=== PATIENT | female | born 1985 | race Caucasian/White ===

== ENCOUNTER 2017-11-15 15:47 | Emergency (ER) | payer MEDICARE, OTHER ==
--- NOTE | 2017-11-15 16:15 | ED Physician Documentation ---
Hand Injury - HISTORIAN Historian: patient - HPI Stated Complaint: wrist pain Chief Complaint: Upper Extremity Injury Onset: just prior to arrival Where: home Severity: mild Duration: persistent since Context: fall Location of Injury: R hand, R wrist Modifying Factors: pain on movement Further Comments: yes (per staff member she fell around 230 pm and her hand and wrist have had pain since. They have not given her any OTC meds) - ROS CONST: no problems - PAST HX Past History: other (MR, OCD, GERD , Schizophrenia, Bipolar ) Immunizations: UTD Allergies/Adverse Reactions: Allergies Allergy/AdvReac Type Severity Reaction Status Date / Time lorazepam [From Ativan] Allergy Verified 11/15/17 15:58 paroxetine [From Paxil] Allergy Verified 11/15/17 15:58 Home Medications: Ambulatory Orders Medication Instructions Recorded Ammonium Lactate [Yuni-Hydrolac] 1 applic TOP PRN PRN 11/15/17 Divalproex Sodium [Depakote] 4 tab PO HS 11/15/17 Esomeprazole Magnesium [Nexium] 1 cap PO DAILY 11/15/17 Fluvoxamine Maleate [Luvox] 1 tab PO DAILY 11/15/17 Fluvoxamine Maleate [Luvox] 1 tab PO HS 11/15/17 Gabapentin 1 tab PO HS 11/15/17 Haloperidol 1 tab PO Q4 PRN 11/15/17 Hydroxyzine HCl [Atarax] 1 tab PO Q6 PRN 11/15/17 Lactulose [Constulose] 30 ml PO BID 11/15/17 Paliperidone [Invega] 1 tab PO HS 11/15/17 Triamcinolone Acetonide 0.1% 1 applic TOP PRN PRN 11/15/17 [Kenalog 0.1% cream] - SOCIAL HX Smoking History: non-smoker Alcohol Use: none Drug Use: none - FAMILY HX Family History: none - REVIEWED ASSESSMENTS Nursing Assessment Reviewed: Yes Vitals Reviewed: Yes ED Results Lab/Radiology - Radiology Radiology Impressions: Right hand History: Status post fall Three views of the right hand were obtained which demonstrate no osseous abnormalities. Mineralization and alignment is normal. There is no evidence for acute fracture or dislocation. Impression: No osseous abnormality. Electronically signed on Nov 15, 2017 4:56:02 PM CDT by: Tosha Spear Hand Injury Physical Exam - Exam General Appearance: no acute distress, alert Hand: nml inspection Wrist: normal ROM, soft tissue tenderness, swelling (mild over wrist area - pulse +, Sensation +, ROM + cap refill +) Neuro: sensation nml, motor nml Vascular: no vascular compromise Forearm/Elbow/Arm: uninjured above wrist Skin: warm/dry Neck/Back: nml inspection Resp/CVS: chest non-tender Abdomen: non-tender, no organomegaly, nml bowel sounds, no distention Discharge Clincal Impression: Wrist pain, right Referrals: Primary Doctor,No [Primary Care Provider] - 2 Days Additional Instructions: 1. Tylenol or Ibuprofen as directed for pain 2. Ice if needed 3. No fracture noted 4. Follow up with PCP in 2-4 days if pain persists 5. Return to ER for any concerns Condition: Stable Disposition: 01 HOME, SELF-CARE Decision to Admit: NO Date of Decison to Admit: 11/15/17 Decision Time: 17:06
[2017-11-15 16:21] VITALS: BP 105/71
--- NOTE | 2017-11-16 10:20 | Diagnostic Imaging Report ---
BRIJESH LYNCH [facility] [id number] [facility] [address] [id number] Report Submission Date: Nov 15, 2017 4:56:02 PM CDT Patient Study Name: YOGESH BAUTISTA Date: Nov 15, 2017 4:29:18 PM CDT Modality Type: DX Gender: F Description: UPPER EXTREMITY : 81 Institution: [facility] Physician: BRIJESH LYNCH Right hand History: Status post fall Three views of the right hand were obtained which demonstrate no osseous abnormalities. Mineralization and alignment is normal. There is no evidence for acute fracture or dislocation. Impression: No osseous abnormality. Electronically signed on Nov 15, 2017 4:56:02 PM CDT by: Tosha BARTLETT
== END 2017-11-15 17:10 | disposition home or self-care (01) ==
LOC: ED 15:47
DX: M25.531 Pain in right wrist (principal)
CPT/HCPCS: 73130; 99282

== ENCOUNTER 2018-12-22 17:30 | Emergency (ER) | payer MEDICARE, OTHER ==
[2018-12-22 17:51] VITALS: BP 135/101
--- NOTE | 2018-12-22 17:56 | ED Physician Documentation ---
Abscess - HISTORIAN Historian: patient, other (caregivers) - HPI Stated Complaint: sore on right inner thigh Chief Complaint: Abscess (small abscess rt inner thigh) Additional Information: 33 year old female with MR presents to ER with caregivers; noticed an abscess to the right inner thigh today. Reddened, swollen area- purplish in color- dime size. Onset: hours Timing: still present Duration: persistent since Location: RLE (Right inner thigh) Quality: painful Identified Cause?: No When Did Symptoms Start: 12/22/18 Where: home Context: Medication Exposure: none Context: Food Exposure: none - ROS CONST: none CVS/RESP: none EYES/ENT: none GI/: none MS/SKIN/LYMPH: none NEURO/PSYCH: none - PAST HX Past History: other (MR) Immunizations: UTD Allergies/Adverse Reactions: Allergies Allergy/AdvReac Type Severity Reaction Status Date / Time lorazepam [From Ativan] Allergy Verified 12/22/18 17:46 paroxetine [From Paxil] Allergy Verified 12/22/18 17:46 Home Medications: Ambulatory Orders Medication Instructions Recorded Ammonium Lactate [Yuni-Hydrolac] 1 applic TOP PRN PRN 11/15/17 Divalproex Sodium [Depakote] 4 tab PO HS 11/15/17 Esomeprazole Magnesium [Nexium] 1 cap PO DAILY 11/15/17 Fluvoxamine Maleate [Luvox] 1 tab PO DAILY 11/15/17 Fluvoxamine Maleate [Luvox] 1 tab PO HS 11/15/17 Gabapentin 1 tab PO HS 11/15/17 Haloperidol 1 tab PO Q4 PRN 11/15/17 Lactulose [Constulose] 30 ml PO BID 11/15/17 Paliperidone [Invega] 1 tab PO HS 11/15/17 Triamcinolone Acetonide 0.1% 1 applic TOP PRN PRN 11/15/17 [Kenalog 0.1% cream] hydrOXYzine HCL [Atarax] 1 tab PO Q6 PRN 11/15/17 - SOCIAL HX Smoking History: non-smoker Alcohol Use: none Drug Use: none - FAMILY HX Family History: none - VITAL SIGNS Vital Signs: Vital Signs Temp Pulse Resp BP Pulse Ox 96.6 F L 107 H 19 135/101 93 12/22/18 17:42 12/22/18 17:42 12/22/18 17:42 12/22/18 17:42 12/22/18 17:42 - REVIEWED ASSESSMENTS Nursing Assessment Reviewed: Yes Vitals Reviewed: Yes ED Results Lab/Radiology - Orders Orders: ED Orders Category Date Time Status Sulfamethoxazole/Trimethoprim [Bactrim Ds] Med 12/22/18 17:45 Discontinued 1 each PO NOW ONE Abscess Physical Exam - EXAM General Appearance: no acute distress, alert Skin: warm,dry, abscess (small dime size; reddish purple; erythemic;) Location: other (right inner thigh) Character: papular Symptoms: warmth, tenderness Extremities: nml ROM EENT: eyes nml inspection, lips nml Respiratory: breath sounds normal CVS: heart sounds nml Neuro/Psych: CN's nml as tested, motor nml, sensation nml Discharge Clincal Impression: Abscess Referrals: Primary Doctor,No [Primary Care Provider] - 2 Days Additional Instructions: Use warm moist heat Alternate tylenol and ibuprofen as needed Take Bactrim Ds bid x 7 days Follow up with PCP next week Condition: Good Disposition: 01 HOME, SELF-CARE Decision to Admit: NO Decision Time: 18:02
[2018-12-22] MEDS: SULFAMETHOXAZOLE/TRIMETHOPRIM 800/160MG TAB PO ONE (18:00)
== END 2018-12-22 18:01 | disposition home or self-care (01) ==
LOC: ED 17:30
DX: L02.415 Cutaneous abscess of right lower limb (principal)
CPT/HCPCS: 99282; 99283; A9270